=== PATIENT | male | born 1945 | race Caucasian/White ===

== ENCOUNTER → 2017-04-21 | Outpatient (CLI) | payer MEDICARE, OTHER ==
[2017-04-21 13:21] VITALS: BP 114/83; PULSE 88; TEMP 98; BMI 36.2
--- NOTE | 2017-04-21 15:01 | FL ---
EXAMINATION TYPE: FL barium swallow DATE OF EXAM: 04/21/2017 COMPARISON: NONE HISTORY: Dysphasia TECHNIQUE: A single contrast UGI study is performed. FINDINGS: Contrast passes from the distal esophagus through the lap band with moderate hesitancy. No extravasation of contrast is evident. No free air is noted during this examination. Lap band position is normal. No herniation is evident. IMPRESSIONS: 1. Moderate to severe hesitancy contrast passing to the level of the lap band. Obstruction is not oth erwise identified. No herniation is evident.
--- NOTE | 2017-04-21 16:15 | P.HPBAR ---
Bariatric H&P - History & Physicial H&P Date: 04/21/17 History & Physicial: Visit/CC: follow up visit Patient initial contact: Initial weight: Initial weight in pounds: Height: 5 ft 7 in Initial BMI: Last weight: Current weight: 104.916 kg Current weight in pounds: 231.30 Current BMI: 36.2 [place] body weight (based on NIH guidelines): 67.132 kg Excess body weight loss: The patient is a 72 year-old M who presents for Bariatric Assessment. The patient states he's had dysphagia for several months. His LAP-BAND was performed in 2001. I'm not seen him since 2002. His weight is gone down to 231 pounds today his last visit he was 280 pounds. The patient states he has issues eating. He has had nausea and vomiting for months. Past Medical History Smoking Status: Never smoker Surgical - Exam Vital Signs Temp Pulse BP 98.0 F 88 114/83 04/21/17 13:19 04/21/17 13:19 04/21/17 13:19 - General well developed, no distress - Eyes PERRL - ENT normal pinna - Neck no masses - Respiratory normal expansion - Cardiovascular Rhythm: regular - Abdomen Abdomen: soft, non tender Bariatric Assessment & Plan Plan: The patient had an esophagram performed which showed obstruction near the LAP- BAND. 3 mL was removed from his LAP-BAND. His abdomen was entered. He will follow- up in one month recheck. Patient is able to drink water without difficulty. Bariatric Checklist Checklist: Plan: Checklist: EGD: 1. Hiatal hernia: 2. H. Pylori: HgbA1c: Vitamin D: Smoking: Never smoker Primary care physician referral: dr sherman Psychiatry clearance: Cardiology clearance: Sleep study: Diet journal: VTE risk score: VTE risk level: Rehab needs at discharge:
== END | disposition home or self-care (01) ==
LOC: BARWHC3 11:04
PROVIDERS: ATTEND Surgery
DX: Z09 Encounter for follow-up examination after completed treatment for conditions other than malignant neoplasm (principal); R13.10 Dysphagia, unspecified; Z98.84 Bariatric surgery status
CPT/HCPCS: 74220; G0463; 99213

== ENCOUNTER → 2018-01-12 | Outpatient (CLI) | payer MEDICARE, OTHER ==
[2018-01-12 13:59] VITALS: BP 175/84; PULSE 71; RESP 16; TEMP 97.8; BMI 40.8
--- NOTE | 2018-01-12 15:06 | P.HPBAR ---
Bariatric H&P - History & Physicial H&P Date: 01/12/18 History & Physicial: Visit/CC: band adj Patient initial contact: Initial weight: 260 kg Initial weight in pounds: 573.20 Height: 5 ft 7 in Initial BMI: 89.7 Last weight: Current weight: 118.501 kg Current weight in pounds: 261.25 Current BMI: 40.8 [place] body weight (based on NIH guidelines): 67.132 kg Excess body weight loss: 73.3% The patient is a 72 year-old M who presents for Bariatric Assessment. Patient has gained 30 pounds last visit. His band was emptied at this last visit. He feels no obstruction. Past Medical History Past Medical History: Coronary Artery Disease (CAD) History of Any Multi-Drug Resistant Organisms: None Reported Past Surgical History: Bariatric Surgery, Orthopedic Surgery, Tonsillectomy Additional Past Surgical History / Comment(s): gastric band surgery in 1999 back surgery x 2 coronary artery bypass Past Anesthesia/Blood Transfusion Reactions: No Reported Reaction Smoking Status: Never smoker Surgical - Exam Vital Signs Temp Pulse Resp BP 97.8 F 71 16 175/84 01/12/18 13:55 01/12/18 13:55 01/12/18 13:55 01/12/18 13:55 - General well developed, no distress - Eyes PERRL - Abdomen Abdomen: soft, non tender Bariatric Assessment & Plan Plan: Patient LAP-BAND was adjusted. He had 2 mL added to the band. He'll follow-up in the weeks. Bariatric Checklist Checklist: Plan: Checklist: EGD: 1. Hiatal hernia: 2. H. Pylori: HgbA1c: Vitamin D: Smoking: Never smoker Primary care physician referral: dr sherman Psychiatry clearance: Cardiology clearance: Sleep study: Diet journal: VTE risk score: VTE risk level: Rehab needs at discharge:
== END | disposition home or self-care (01) ==
LOC: BARWHC3 13:35
PROVIDERS: ATTEND Surgery
DX: Z46.51 Encounter for fitting and adjustment of gastric lap band (principal); I25.10 Atherosclerotic heart disease of native coronary artery without angina pectoris; Z98.84 Bariatric surgery status; Z98.890 Other specified postprocedural states
CPT/HCPCS: 99212